=== PATIENT | male | born 1950 | race African-American/Black ===

== ENCOUNTER 2022-03-20 05:38 | Observation (INO) ==
[2022-03-20 06:16] LABS: Basophils # 0.1 10*3/uL (0.0-0.2); Basophils % 1.2 % (0.0-0.8); Eosinophils # 0.2 10*3/uL (0.0-0.87); Eosinophils % 3.1 % (0.00-10.9); Hematocrit 48.7 VOL% (42.0-52.0); Hemoglobin 15.5 GM/DL (14.0-18.0); Immature Granulocytes % 0.5 %; Immature Granulocytes Absolute 0.03 #; Lymphocytes # 1.5 10*3/uL (1.4-4.0); Lymphocytes % 22.5 % (21.2-54.2); Mean Corpuscular HGB Conc 31.8 GM/DL (32-36); Mean Platelet Volume 9.2 FL (9.6-12.0); Monocytes # 0.5 10*3/uL (0.11-0.8); Monocytes % 7.1 % (1.7-12.7); Neutrophils % 65.6 % (38.7-73.9); Platelet Count 527 T/CUMM (130-400); Red Blood Count 5.47 MC/CUMM (3.8-5.5); Red Cell Distribution Width 16.6 % (9.3-17.3); White Blood Count 6.5 T/CUMM (4-12)
[2022-03-20 06:21] LABS: PT Patient Result 11.5 SECS (10.1-12.1); Partial Thromboplastin Time 27.6 SECS (23.7-32.9)
[2022-03-20 06:31] LABS: Albumin 3.7 G/DL (3.4-5.0); Bilirubin,Total 1.6 MG/DL (0.20-1.00); Calcium 8.9 MG/DL (8.5-10.1); Osmolality,Calculated 281.1 MOS/KG (273-304); Potassium 3.4 MMOL/L (3.5-5.1); Total Protein 6.5 G/DL (6.4-8.2)
[2022-03-20] MEDS ORDERED: ASPIRIN CHEW 81 MG TABLET PO STA (07:35)
[2022-03-20] MEDS ORDERED: MORPHINE 2 MG/1 ML SYRINGE IV STA (07:36)
[2022-03-20] MEDS ORDERED: ONDANSETRON 4 MG/2 ML VIAL IV STA (07:36)
[2022-03-20] MEDS ORDERED: ONDANSETRON 4 MG/2 ML VIAL IV PRN (08:19)
[2022-03-20] MEDS ORDERED: MORPHINE 2 MG/1 ML SYRINGE IV PRN (08:19)
[2022-03-20] MEDS ORDERED: hydrALAZINE 20 MG/1 ML VIAL IV PRN (08:19)
[2022-03-20] MEDS ORDERED: ACETAMINOPHEN 325 MG TABLET PO PRN (08:19)
[2022-03-20] MEDS ORDERED: FUROSEMIDE 40 MG/4 ML VIAL IV SCH (08:30)
[2022-03-20] MEDS ORDERED: ENOXAPARIN 40 MG/0.4 ML SYRINGE SUBCUT SCH (08:30)
[2022-03-20] MEDS ORDERED: PANTOPRAZOLE 40 MG TABLET PO SCH (09:00)
[2022-03-20 09:05] LABS: Risk Ratio 4.11; VLDL Cholesterol 27.6 MG/DL
[2022-03-20] MEDS ORDERED: ASPIRIN EC 81 MG TABLET PO SCH (10:00)
[2022-03-20] MEDS ORDERED: amLODIPine 10 MG TABLET PO SCH (10:00)
[2022-03-20] MEDS ORDERED: SPIRONOLACTONE 25 MG TABLET PO SCH (10:00)
[2022-03-20] MEDS ORDERED: lisinopriL 20 MG TABLET PO SCH (10:00)
[2022-03-20] MEDS ORDERED: PNEUMOCOCCAL VACCINE (13 VALENT) 0.5 ML SYRINGE IM ONE (10:02)
[2022-03-20] MEDS ORDERED: PNEUMOCOCCAL VACCINE (20 VALENT) 0.5 ML SYRINGE IM ONE (11:00)
[2022-03-20 11:46] VITALS: BP 143/54
[2022-03-20] MEDS ORDERED: POTASSIUM CHLORIDE 20 MEQ TABLET PO ONE (12:19)
[2022-03-20] MEDS ORDERED: SIMVASTATIN 40 MG TABLET PO SCH (21:00)
[2022-03-21] MEDS ORDERED: ASPIRIN 325 MG TABLET PO SCH (09:00)
== END 2022-03-20 15:32 | disposition home or self-care (01) ==
LOC: N.EDINP 05:38 → N.ED 05:38 → N.2W 09:16
PROVIDERS: ADMIT Internal Medicine; ATTEND Internal Medicine